=== PATIENT | male | born 1960 | race Two or more races ===

== ENCOUNTER 2019-06-08 14:16 | Outpatient (CLI) | payer MEDICARE, OTHER ==
--- NOTE | 2019-06-10 21:15 | Consultation ---
DATE OF CONSULTATION: 06/08/2019 CHIEF COMPLAINT: Referral for anemia. HISTORY OF PRESENT ILLNESS: The patient is a poor historian, has numerous medical problems which I will dictate in a second, was referred to us for anemia. PAST MEDICAL HISTORY: 1. Schizophrenia. 2. Hypernatremia. 3. GERD. 4. Hypercholesterolemia. 5. BPH. 6. Anemia. 7. Iron-deficiency. MEDICATIONS: Please see medication reconciliation list. FAMILY HISTORY: Noncontributory. SOCIAL HISTORY: Currently lives in a group home. No recent history of tobacco, alcohol, or drug abuse. ALLERGIES: No known drug allergies. REVIEW OF SYSTEMS: Limited. PHYSICAL EXAMINATION: GENERAL: This is a well-developed male, in no acute distress. HEENT: Normocephalic and atraumatic. Mild pale conjunctivae. The patient had overall poor dentition. NECK: Supple. No evidence of obvious lymphadenopathy. CARDIOVASCULAR: Regular rate and rhythm. Plus S1 and S2. LUNGS: Decreased breath sounds bilaterally based on the supine exam. ABDOMEN: Soft and nontender. No rebound. No guarding. No peritoneal sign. EXTREMITIES: No cyanosis. No clubbing. No edema. ASSESSMENT AND PLAN: The patient is a 59-year-old male was referred to us for evaluation of iron-deficiency anemia. The patient needs an endoscopy and colonoscopy especially as he never had any of these procedure done before and he is anemic and iron deficient, but the patient is very adamant and refusing. I explained to him the risks and benefits. If he does not agree, he might have cancer and . The patient states that he does not care and he does not want to have these procedures done, so to be referred back to us when he is ready for having the procedures done, so we can evaluate him. Gildardo Zee M.D. DR: Charlene JOB#: [id number] CC:
== END 2019-06-08 16:01 | disposition home or self-care (01) ==
LOC: PAN 14:16
DX: D50.9 Iron deficiency anemia, unspecified (principal); F20.9 Schizophrenia, unspecified; K21.9 Gastro-esophageal reflux disease without esophagitis; E78.00 Pure hypercholesterolemia, unspecified
CPT/HCPCS: G0463